=== PATIENT | female | born 1975 | race Caucasian/White ===

== ENCOUNTER 2020-10-27 12:50 | Inpatient (IN) | payer BC, OTHER ==
[~2020-10-27 12:50] MED LIST: Iopamidol-370 76% 500 ML 1 ML ONE
[2020-10-27] MEDS ORDERED: Fentanyl 100 MCG/2 ML VIAL ONE (15:43)
[2020-10-27] MEDS ORDERED: Ketorolac Tromethamine 30 MG/ML VIAL ONE (15:43)
[2020-10-27] MEDS ORDERED: Ondansetron PF 4 MG/2 ML Vial ONE (15:43)
[2020-10-27 16:01] LABS: #Monocytes 0.9 thou/uL (0.11-0.59); #Neutrophils 14.6 thou/uL (1.40-6.50); %Basophils 0.1 % (0.0-1.0); %Eosinophils 0.1 % (0.0-10.0); %Lymphocytes 11.6 % (21.0-51.0); %Monocytes 5.2 % (0.0-10.0); %Neutrophils 83.1 % (42.0-75.0); Mean Corpuscular HGB CONC 33.9 g/dL (32.0-36.0); Mean Corpuscular Hemoglobin 30.4 pg (27.0-31.0); Mean Corpuscular Volume 89.8 fL (78.0-98.0); Mean Platelet Volume 7.5 fL (7.4-10.4); Platelet Count 319 thou/uL (130-400); RBC Distribution Width 12.8 % (11.5-14.5); Red Blood Cell (RBC) Count 4.26 mill/uL (4.20-5.40); White Blood Cell (WBC) Count 17.6 thou/uL (4.8-10.8)
[2020-10-27 16:09] LABS: BHCG - Serum Negative (NEGATIVE); Pregs Control Background? CLEAR/WHITE (CLR/WHITE); Pregs Control Bar Appear? YES (CONTROL BAR)
[2020-10-27 16:20] LABS: ALT (SGPT) 19 U/L (8-55); AST (SGOT) 16 U/L (5-34); Albumin 4.2 g/dL (3.5-5.0); Alkaline Phosphatase 102 U/L (40-110); Anion Gap 15 mmol/L (10-20); BUN (Urea Nitrogen) 19 mg/dL (7.0-18.7); Bilirubin, Total 0.7 mg/dL (0.2-1.2); CK (CPK) 95 U/L (29-168); Calc. Creatinine Clearance 0 mL/min (70-130); Calcium 8.6 mg/dL (7.8-10.44); Carbon Dioxide 20 mmol/L (22-29); Chloride 109 mmol/L (98-107); Globulin 3.9 g/dL (2.4-3.5); Glucose 113 mg/dL (70-105); Lipase 7 U/L (8-78); Potassium 3.8 mmol/L (3.5-5.1); Protein, Total 8.1 g/dL (6.0-8.3); Sodium 140 mmol/L (136-145)
--- NOTE | 2020-10-27 16:55 | CT ---
CT ABDOMEN AND PELVIS WITH CONTRAST: History: Abdominal pain and constipation for four days. Technique: Multiple contiguous axial images were obtained in a CT of the abdomen and pelvis with cont rast. Sagittal and coronal reformats were performed. FINDINGS: The patient is status post cholecystectomy. The liver, kidneys, adrenal glands, spleen, and pancreas are unremarkable. There is subtle stranding change in the left colon and a small amount of fluid in the left paracolic gutter. A few scattered diverticula are seen in the colon. There is focal thickening of the wall of t he colon at the junction of the descending colon and sigmoid colon. The small bowel is normal in ruben errol. The appendix is normal. No free air is seen in the abdomen or pelvis. The reproductive organs ar e unremarkable. No abdominal or pelvic lymph adenopathy are seen. The osseous structures, visualized inferior thorax and abdominal wall soft tissues are unremarkable. IMPRESSION: There is focal colitis in the left colon. This may be secondary to diverticulitis. Infectious colitis is also a possibility. Recommend following to resolution to exclude an underlying colonic mass. POS: EAA
[2020-10-27 17:18] LABS: Bacteria/HPF None Seen HPF (None Seen); Bilirubin Negative (Negative); Blood, Urine 2+ (Negative); Clarity Clear (Clear); Glucose, Urine (Dipstick) Normal (Negative); Ketone, Urine Negative (Negative); Leukocyte Negative Leu/uL (Negative); Nitrite Negative (Negative); Protein, Urine (Dipstick) 20 mg/dL (Neg-Trace); Squamous Epithelial 0-3 HPF (0-3); Urobilinogen Normal mg/dL (Less than 2); pH, Urine 5.5 (5.0-9.0)
[2020-10-27 17:20] LABS: Specific Gravity, Urine 1.059 (1.002-1.036)
[2020-10-27] MEDS ORDERED: Morphine 4 MG/ML VIAL ONE (17:27)
[2020-10-27] MEDS ORDERED: metroNIDAZOLE 500 MG/100 ML BAG ONE (17:45)
[2020-10-27] MEDS ORDERED: Acetaminophen 325 MG TAB PO PRN (18:59)
[2020-10-27] MEDS ORDERED: Acetaminophen 650 MG Suppository PR PRN (18:59)
--- NOTE | 2020-10-27 20:07 | PDOC.HHP ---
Hospitalist HPI History of Present Illness: ADMISSION DATE: 10/27/2020 TIME OF ASSESSMENT: 190 PRIMARY CARE PHYSICIAN: Ashu Denise CHIEF COMPLAINT: Abdominal pain and vomiting HPI: This is a 45-year-old woman who presents to the emergency department with persistent abdominal pain since yesterday as well as inability to keep food down due to subsequent vomiting with any p.o. intake. The patient states that she has had GI issues in the past and suffers from chronic diarrhea for which she takes Imodium. She took 3 tablets of Imodium on Wednesday morning as she normally does when she has to drive to work and has not had a full bowel movement since. Reports that 2 days ago she was able to pass small hard pellets. Not had any abdominal distention has not had any flatus but has been burping often. The vomiting started yesterday after lunch. She reports tolerating breakfast well and without difficulties. She first began to experience lower abdominal cramping which was followed by an episode of vomiting when she attempted to eat lunch. She has had persistent vomiting only after any p.o. intake. Denies any hematemesis and denies any melena or bright red blood per rectum. Fevers, chil ls or sweats. Describes the pain as cramping that feels like contractions. She rates it a 7 out of 10 in severity. Reports having an upper and lower endoscopy 5 years ago which was obtained due to fluctuating bowel movements between diarrhea and constipation. Studies were unremarkable. ROS: Denies having any chest pain, palpitations or shortness of breath. No headaches or dizziness. No dysuria or hematuria. All other review of systems apart from what is mentioned above are negative. ED COURSE: Labs showed a white cell count of 17.6, neutrophils 83.1%, BUN 19, creatinine 0.73, GFR 87, glucose 113, LFTs normal, lipase normal. Serum pr egnancy test negative. Urinalysis was done showing clear urine which showed blood 2+, 4-6 white blood cells and 11-20 red blood cells. No bacteria present. CT of the abdomen and pelvis was done demonstrating focal colitis in the left colon felt to be possibly secondary to diverticulitis versus infectious colitis. Follow-up imaging recommended to exclude possibility of colonic mass. She was started on IV antibiotics with Levaquin and metronidazole. For her pain she received fentanyl 100 mcg followed by 30 mg of Toradol IV and 4 mg of morphine IV. For nausea and vomiting she was given 8 mg of Zofran IV. She received 2 L of normal saline IV. CURRENT MEDICATIONS: 1. Losartan 50 mg p.o. daily 2. Omeprazole 20 mg p.o. daily Allergies/Adverse Reactions: Allergy/AdvReac Type Severity Reaction Status Date / Time Penicillins Allergy Unverified 10/27/20 19:36 Sulfa (Sulfonamide Allergy Unverified 10/27/20 19:36 Antibiotics) Past History: PAST MEDICAL HISTORY: 1. Hypertension 2. Hyperlipidemia PAST SURGICAL HISTORY: 1. Tonsillectomy 2. Cholecystectomy 3. x1 SOCIAL HISTORY: Lives with her family and denies any history of tobacco use, alcohol consumption or drug use. FAMILY HISTORY: Noncontributory Hospitalist Exam Vitals: VS: Temp 98.3, HR 93, BP 149/71, RR 20, O2 sat 100% on room air. Pain currently 4 out of 10 in severity. General Appearance: NAD, awake alert Eye: PERRL, anicteric sclera ENT: normocephalic atraumatic, no oropharyngeal lesions Neck: supple, no lymphadenopathy Heart: RRR, normal peripheral pulses Respiratory: CTAB, no wheezes, no rales, no ronchi, normal chest expansion, no tachypnea Gastrointestinal: soft (obese), non-distended, no guarding, no rigidity Gastrointestinal - other findings: mild discomfort with palpation of lower abdomen Extremities: no edema Skin: normal turgor, no lesions, no rashes Neurological: cranial nerve grossly intact, normal sensation to touch, no weakness Musculoskeletal: normal tone, normal strength, no muscle wasting Psychiatric: normal affect, normal behavior, A&O x 3 Hospitalist Results Result Diagrams: 10/27/20 15:52 10/27/20 15:52 Lab results: Laboratory Last Values WBC 17.6 thou/uL (4.8-10.8) H 10/27/20 15:52 RBC 4.26 mill/uL (4.20-5.40) 10/27/20 15:52 Hgb 13.0 g/dL (12.0-16.0) 10/27/20 15:52 Hct 38.3 % (36.0-47.0) 10/27/20 15:52 MCV 89.8 fL (78.0-98.0) 10/27/20 15:52 MCH 30.4 pg (27.0-31.0) 10/27/20 15:52 MCHC 33.9 g/dL (32.0-36.0) 10/27/20 15:52 RDW 12.8 % (11.5-14.5) 10/27/20 15:52 Plt Count 319 thou/uL (130-400) 10/27/20 15:52 MPV 7.5 fL (7.4-10.4) 10/27/20 15:52 Neutrophils % 83.1 % (42.0-75.0) H 10/27/20 15:52 Lymphocytes % 11.6 % (21.0-51.0) L 10/27/20 15:52 Monocytes % 5.2 % (0.0-10.0) 10/27/20 15:52 Eosinophils % 0.1 % (0.0-10.0) 10/27/20 15:52 Basophils % 0.1 % (0.0-1.0) 10/27/20 15:52 Neutrophils # 14.6 thou/uL (1.40-6.50) H 10/27/20 15:52 Lymphocytes # 2.0 thou/uL (1.20-3.40) 10/27/20 15:52 Monocytes # 0.9 thou/uL (0.11-0.59) H 10/27/20 15:52 Eosinophils # 0.0 thou/uL (0.0-0.7) 10/27/20 15:52 Basophils # 0.0 thou/uL (0.0-0.2) 10/27/20 15:52 Sodium 140 mmol/L (136-145) 10/27/20 15:52 Potassium 3.8 mmol/L (3.5-5.1) 10/27/20 15:52 Chloride 109 mmol/L (98-107) H 10/27/20 15:52 Carbon Dioxide 20 mmol/L (22-29) L 10/27/20 15:52 Anion Gap 15 mmol/L (10-20) 10/27/20 15:52 BUN 19 mg/dL (7.0-18.7) H 10/27/20 15:52 Creatinine 0.73 mg/dL (0.6-1.1) 10/27/20 15:52 Estimated GFR (MDRD) 87 10/27/20 15:52 Glucose 113 mg/dL (70-105) H 10/27/20 15:52 Calcium 8.6 mg/dL (7.8-10.44) 10/27/20 15:52 Total Bilirubin 0.7 mg/dL (0.2-1.2) 10/27/20 15:52 AST 16 U/L (5-34) 10/27/20 15:52 ALT 19 U/L (8-55) 10/27/20 15:52 Alkaline Phosphatase 102 U/L (40-110) 10/27/20 15:52 Creatine Kinase 95 U/L (29-168) 10/27/20 15:52 Serum Total Protein 8.1 g/dL (6.0-8.3) 10/27/20 15:52 Albumin 4.2 g/dL (3.5-5.0) 10/27/20 15:52 Globulin 3.9 g/dL (2.4-3.5) H 10/27/20 15:52 Albumin/Globulin Ratio 1.1 g/dL (1.2-2.2) L 10/27/20 15:52 Lipase 7 U/L (8-78) L 10/27/20 15:52 Serum , Qual Negative (NEGATIVE) 10/27/20 15:52 Urine Color Yellow (Yellow) 10/27/20 16:50 Urine Clarity Clear (Clear) 10/27/20 16:50 Urine pH 5.5 (5.0-9.0) 10/27/20 16:50 Ur Specific [place] 1.059 (1.002-1.036) H 10/27/20 16:50 Urine Protein 20 mg/dL (Neg-Trace) 10/27/20 16:50 Urine Glucose (UA) Normal mg/dL (Negative) 10/27/20 16:50 Urine Ketones Negative mg/dL (Negative) 10/27/20 16:50 Urine Blood 2+ (Negative) A 10/27/20 16:50 Urine Nitrite Negative (Negative) 10/27/20 16:50 Urine Bilirubin Negative (Negative) 10/27/20 16:50 Urine Urobilinogen Normal mg/dL (Less than 2) 10/27/20 16:50 Ur Leukocyte Esterase Negative Saray/uL (Negative) 10/27/20 16:50 Urine RBC 11-20 HPF (0-3) A 10/27/20 16:50 Urine WBC 4-6 HPF (0-3) A 10/27/20 16:50 Ur Squamous Epith Cells 0-3 HPF (0-3) 10/27/20 16:50 Urine Bacteria None Seen HPF (None Seen) 10/27/20 16:50 CT scan - Ab/Pelvis Status: report reviewed by me Hospitalist H&P A/P (1) Abdominal pain Code(s): R10.9 - UNSPECIFIED ABDOMINAL PAIN Status: Acute (2) Vomiting Code(s): R11.10 - VOMITING, UNSPECIFIED Status: Acute (3) Colitis Code(s): K52.9 - NONINFECTIVE GASTROENTERITIS AND COLITIS, UNSPECIFIED Status: Acute (4) Hypertension Code(s): I10 - ESSENTIAL (PRIMARY) HYPERTENSION Status: Chronic (5) Obesity Code(s): E66.9 - OBESITY, UNSPECIFIED Status: Chronic Plan: Started on IV antibiotics GI Consult Continue morphine for pain Will give Bentyl IM for abdominal cramping Keep patient NPO Continue IV fluids Monitor BP Resume home meds once verified, as appropriate GI Prophylaxis with Famotidine DVT Prophylaxis with mechanical SCDs CODE STATUS FULL Case discussed with attending who agrees with plan as above.
[2020-10-27] MEDS: Morphine 2 MG/ML VIAL SLOW IVP PRN (21:55)
[2020-10-27] MEDS: Famotidine/PF 20 mg/2ml Vial SLOW IVP SCH (21:56)
--- NOTE | 2020-10-27 22:31 | RAD ---
2 VIEWS CHEST: Date: 10/27/2020 COMPARISON: None. HISTORY: Baseline chest x-ray. Abdominal pain. Diverticulitis. FINDINGS: Two views of the chest show normal sized cardiomediastinal silhouette. There is no evidence of consol idation, mass, or pleural effusion. The bones are unremarkable. IMPRESSION: No evidence of acute cardiopulmonary disease. POS: EAA
[2020-10-28] MEDS: metroNIDAZOLE 500 MG in Premix Bag 1 BAG IVPB SCH ×3 (01:10→22:02)
[2020-10-28] MEDS ORDERED: Morphine 2 MG/ML VIAL ONE ×2 (02:48→09:36)
[2020-10-28] MEDS ORDERED: Dicyclomine 10 MG CAP ONE (02:49)
[2020-10-28] MEDS ORDERED: Famotidine/PF 20 mg/2ml Vial ONE (09:34)
[2020-10-28] MEDS ORDERED: Acetaminophen 325 MG TAB ONE (09:36)
[2020-10-28] MEDS ORDERED: metroNIDAZOLE 500 MG/100 ML BAG ONE (09:36)
[2020-10-28] MEDS: Morphine 2 MG/ML VIAL SLOW IVP PRN ×3 (09:45→22:04)
[2020-10-28] MEDS: Famotidine/PF 20 mg/2ml Vial SLOW IVP SCH ×2 (09:45→22:03)
--- NOTE | 2020-10-28 10:56 | PDOC.HOSPP ---
- Subjective Encounter Date: 10/28/20 Encounter Time: 10:52 Subjective: No overnight events. Patient reports her abdominal pain feels the same as yesterday. Continues to endorse nausea/vomiting. Is passing gas this am. Denies chest pain, SOB. Chart and medications reviewed. - Objective Vital Signs & Weight: Vital Signs (12 hours) Temp Pulse Resp Pulse Ox 10/27/20 22:59 97.5 F L 91 18 95 Result Diagrams: 10/27/20 15:52 10/27/20 15:52 Hospitalist ROS - Review of Systems Constitutional: denies: fever, chills, sweats, weakness, malaise, other Eyes: denies: pain, vision change, conjunctivae inflammation, eyelid inf lammation, redness, other ENT: denies: ear pain, ear discharge, nose pain, nose discharge, nose congestion, mouth pain, mouth swelling, throat pain, throat swelling, other Respiratory: denies: cough, dry, shortness of breath, hemoptysis, SOB with exc ertion, pleuritic pain, sputum, wheezing, other Cardiovascular: denies: chest pain, palpitations, orthopnea, paroxysmal noc. dyspnea, edema, light headedness, other Gastrointestinal: reports: nausea, vomiting, abdominal pain. denies: diarrhea, constipation, melena, hematochezia, other Genitourinary: denies: dysuria, frequency, incontinence, hematuria, retention, other Musculoskeletal: denies: neck pain, shoulder pain, arm pain, back pain, hand pain, leg pain, foot pain, other Skin: denies: rash, lesions, brodie, bruising, other Neurological: denies: weakness, numbness, incoordination, change in speech, confusion, seizures, other - Medication Medications: Active Medications Generic Name Dose Route Start Last Admin Trade Name Freq PRN Reason Stop Dose Admin Famotidine 20 mg 10/27/20 21:00 10/27/20 21:56 Famotidine/Pf 20 Mg/2ml Vial SLOW IVP 20 mg Q12HR CORNELIUS Administration Metronidazole 500 mg/ Device 100 mls @ 100 mls/hr 10/28/20 01:00 10/28/20 01:10 IVPB 100 mls [id number],1700 CORNELIUS Administration Morphine Sulfate 2 mg 10/27/20 19:03 10/27/20 21:55 Morphine 2 Mg/Ml Vial SLOW IVP 2 mg Q4H PRN Administration Severe Pain (7-10) Hospitalist Exam Vitals: Vital Signs (12 hours) Temp Pulse Resp Pulse Ox 10/27/20 22:59 97.5 F L 91 18 95 General Appearance: NAD, awake alert Eye: PERRL, anicteric sclera ENT: normocephalic atraumatic, no oropharyngeal lesions, moist mucosa Neck: supple, symmetric, no JVD, no thyromegaly, no lymphadenopathy, no carotid bruit Heart: RRR, no murmur, no gallops, no rubs, normal peripheral pulses Respiratory: CTAB, no wheezes, no rales, no ronchi, normal chest expansion, no tachypnea, normal percussion Gastrointestinal: soft, non-distended, normal bowel sounds, no palpable masses, no hepatomegaly, no splenomegaly, no bruit, tender to palpation Extremities: no cyanosis, no clubbing, no edema Skin: normal turgor, no lesions, no rashes Neurological: cranial nerve grossly intact, normal sensation to touch, no weakness, no focal deficits, no new deficit Musculoskeletal: normal tone, normal strength, no muscle wasting Psychiatric: normal affect, normal behavior, A&O x 3 Hosp A/P - Plan Diverticulitis 45F with abdominal pain, N/V found to have CT evidence of diverticulitis vs infectious colitis. WBC 17.6. LFTs wnl. Pt reports constipation over the past few days. No transition point identified on CT scan. Is passing gas. Hx of what sounds like IBS constipation-diarrhea type with negative prior GI workup. Started on IV levaquin and flagyl. GI consult, recommendations appreciated. Plan -Continue IV levaquin, flagyl -IVF, prn zofran -Serial abdominal exams -Bentyl PRN -Clear liquid diet, ADAT -GI consult, recs appreciated Hypertension Hx of HTN, will continue home HCTZ DVT prophylaxis- Lovenox FULL CODE Case discussed with attending physician, Dr. Benz.
[2020-10-28] MEDS: Lactated Ringer's 1,000 ML IV SCH ×2 (13:00→22:07)
--- NOTE | 2020-10-28 14:05 | CON ---
DATE OF CONSULTATION: REASON FOR CONSULT: Abdominal pain, focal colitis, possible mass on CAT scan. HISTORY OF PRESENT ILLNESS: Ms. Hernandez is a pleasant 45-year-old female, who states she became acutely ill on Wednesday, the day prior to admission which was yesterday. She developed left lower quadrant pain and obstipation. She thought maybe she was constipated and tried to take some laxatives, this did not make things better, as the pain worsened, she ultimately came to the emergency room here she had a CAT scan that showed inflammatory change in the left lower quadrant. She was afebrile. The CAT scan showed a "focal colitis" in the left colon which the radiologist felt was possibly secondary to diverticulitis or possibly even an infectious colitis. In talking with the patient, she has had no diarrhea or pain before this. She has no sick contacts. She denies prior history of diverticulitis. She did have a colonoscopy and EGD at [facility] 4 years ago for workup of her chronic diarrhea after cholecystectomy and she was told it was post cholecystectomy diarrhea. PAST MEDICAL HISTORY: Hypertension. She denies diabetes. Hyperlipidemia. PAST SURGICAL HISTORY: Cholecystectomy, , and tonsillectomy. ALLERGIES: PENICILLIN, SULFA. MEDICATIONS AT HOME: 1. Losartan. 2. Omeprazole. REVIEW OF SYSTEMS: She does have some reflux at times at home, but has no dysphagia or odynophagia. PRESENT MEDICATIONS: Here; 1. Tylenol. 2. Dicyclomine. 3. Pepcid. 4. Lactated Ringer's. 5. Levofloxacin q.24 hours. 6. Flagyl 500 IV q.8 hours. 7. P.r.n. morphine . PHYSICAL EXAMINATION: GENERAL: She is resting comfortably in bed. She is a little bit overweight. She is in no distress. VITAL SIGNS: Temperature is 97, pulse 91, blood pressure not recorded. She was not hypotensive in the ER. The nurse reports that her vitals have been stable to me. They were not written down because of computer malfunctions with the weather. HEENT: In general, oropharynx with no lesions. She is not icteric. LUNGS: Clear. HEART: Regular without clicks or murmurs. ABDOMEN: Soft and nontender except for mild tenderness in the left lower quadrant. No rebound or guarding. LABORATORY DATA: White count 17, hemoglobin 13, platelet count 319. Urinalysis, 2+ blood, red blood cells and white blood cells. Microbiology, not sent. ASSESSMENT: This lady likely has diverticulitis. She has no symptoms of a colitis either ischemic or infectious. The pain was with obstipation. She has had a colonoscopy 4 years ago at [facility], so a cancer is very unlikely. RECOMMENDATIONS: Agree with low residue, clear liquid diet. I will give her some IV fluids as she is probably dehydrated, she has been ill, and I will continue the IV Flagyl and Levaquin. Hopefully, she will be ready go home in 24 to 48 hours and can follow up with her primary mortgage underwriter and primary physician at [facility]. Job ID: [id number]
[2020-10-28 16:30] LABS: Anion Gap 11 mmol/L (10-20); BUN (Urea Nitrogen) 20 mg/dL (7.0-18.7); Calc. Creatinine Clearance 0 mL/min (70-130); Calcium 7.9 mg/dL (7.8-10.44); Carbon Dioxide 20 mmol/L (22-29); Chloride 110 mmol/L (98-107); Glucose 100 mg/dL (70-105); Potassium 3.6 mmol/L (3.5-5.1); Sodium 137 mmol/L (136-145)
[2020-10-29] MEDS: metroNIDAZOLE 500 MG in Premix Bag 1 BAG IVPB SCH ×2 (04:04→11:58)
[2020-10-29] MEDS ORDERED: Promethazine HCl 12.5 MG in Sodium Chloride 0.9% 50 ML IVPB SCH (04:15)
[2020-10-29] MEDS: Famotidine/PF 20 mg/2ml Vial SLOW IVP SCH ×2 (08:14→21:16)
[2020-10-29] MEDS: Lactated Ringer's 1,000 ML IV SCH (08:17)
[2020-10-29 12:21] LABS: Hemoglobin 12.3 g/dL (12.0-16.0); Mean Corpuscular Hemoglobin 30.8 pg (27.0-31.0); Mean Corpuscular Volume 90.7 fL (78.0-98.0); Mean Platelet Volume 9.2 fL (7.4-10.4); Platelet Count 185 thou/uL (130-400); RBC Distribution Width 12.4 % (11.5-14.5); Red Blood Cell (RBC) Count 3.99 mill/uL (4.20-5.40); White Blood Cell (WBC) Count 12.2 thou/uL (4.8-10.8)
--- NOTE | 2020-10-29 15:49 | PRG ---
DATE OF SERVICE: 10/29/2020 REASON FOR CONSULTATION: Acute diverticulitis. SUBJECTIVE: Since being placed on antibiotic therapy, she states that her abdominal pain has significantly improved when compared to yesterday. She does continue to have some left lower quadrant/suprapubic abdominal pain, but again much improved. She did have a large semi-solid/liquid bowel movement last night as well with no evidence of hematochezia or melena. Today, she has not had any further bowel movements as of yet, but has not started eating a solid diet . Otherwise, she denies any nausea, vomiting, fevers, chills, hematemesis, melena, or hematochezia. OBJECTIVE: VITAL SIGNS: Temperature 98.4, pulse 85, blood pressure 143/84, respiratory rate 16, saturating 95% on room air. GENERAL: The patient was lying in bed, in no acute distress. Alert and oriented x4. CARDIOVASCULAR: Regular rate and rhythm. RESPIRATORY: Clear to auscultation bilaterally. ABDOMEN: Normoactive bowel sounds. Soft, nondistended. Tenderness to palpation in the left lower quadrant, suprapubic and right lower quadrant. EXTREMITIES: No cyanosis, clubbing, or edema. LABORATORY DATA: CBC with a white blood cell count of 12.2, hemoglobin 12.3, hematocrit 36.1, platelets 185. IMAGING DATA: No current GI imaging is available for review. ASSESSMENT AND PLAN: The patient is a 45-year-old female with past medical history of hypertension and hyperlipidemia, presenting with acute diverticulitis. Acute uncomplicated diverticulitis. The patient initially presented with increased left lower quadrant abdominal pain and obstipation, for which attempts to take laxatives did not alleviate her pain. On evaluation in the ER, she was noted to have an elevated white blood cell count as well as inflammatory change in left lower quadrant on CT, consistent with focal colitis. At this time, this is most likely secondary to diverticulitis in light of a history of constipation and currently responding to current antibiotic regimen. RECOMMENDATIONS: 1. We will continue the patient on the current antibiotic regimen including levofloxacin and metronidazole. 2. Advance the patient's diet as tolerated, but would advance to a low-fiber diet ultimately. 3. Pain control per Primary Team. 4. Antiemetics per Primary Team. The patient is currently responding to antibiotic administration. If doing better right tomorrow, she could be potentially discharged to home on oral antibiotics and follow up in the GI Clinic. We will continue to follow peripherally at this time. Please call with any questions. Job ID: [id number]
--- NOTE | 2020-10-29 15:54 | PDOC.HOSPP ---
- Subjective Encounter Date: 10/29/20 Encounter Time: 12:00 Subjective: F/u: diverticulitis The patient is tolerating a clear liquid diet . Her pain has improved, no nausea and vomiting. She still has some diarrhea, but reports chronic diarrhea for years after a cholecystectomy that is worsened with eating salads and greasy foods - Objective Vital Signs & Weight: Vital Signs (12 hours) Temp Pulse Resp BP Pulse Ox 10/29/20 11:14 98.4 F 85 16 143/84 H 95 10/29/20 11:00 98.4 F 85 17 143/84 H 95 10/29/20 07:55 98.1 F 64 16 124/78 98 10/29/20 04:49 97.6 F 73 18 134/70 97 Result Diagrams: 10/29/20 11:57 10/28/20 05:32 Hospitalist ROS - Review of Systems Constitutional: denies: fever, chills - Medication Medications: Active Medications Generic Name Dose Route Start Last Admin Trade Name Freq PRN Reason Stop Dose Admin Acetaminophen 650 mg 10/27/20 18:59 10/28/20 12:05 Acetaminophen 325 Mg Tab PO 650 mg Q4H PRN Administration Headache/Fever/Mild Pain (1-3) Famotidine 20 mg 10/27/20 21:00 10/29/20 08:14 Famotidine/Pf 20 Mg/2ml Vial SLOW IVP 20 mg Q12HR CORNELIUS Administration Levofloxacin 750 mg/ Device 150 mls @ 100 mls/hr 10/28/20 18:00 10/28/20 18:58 IVPB 150 mls 1800 CORNELIUS Administration Metronidazole 500 mg/ Device 100 mls @ 100 mls/hr 10/28/20 20:00 10/29/20 11:58 IVPB 100 mls 0400,1200,2000 CORNELIUS Administration Morphine Sulfate 2 mg 10/27/20 19:03 10/28/20 22:04 Morphine 2 Mg/Ml Vial SLOW IVP 2 mg Q4H PRN Administration Severe Pain (7-10) Hospitalist Exam Vitals: Vital Signs (12 hours) Temp Pulse Resp BP Pulse Ox 10/29/20 11:14 98.4 F 85 16 143/84 H 95 10/29/20 11:00 98.4 F 85 17 143/84 H 95 10/29/20 07:55 98.1 F 64 16 124/78 98 10/29/20 04:49 97.6 F 73 18 134/70 97 General Appearance: NAD, awake alert Eye: PERRL, anicteric sclera ENT: normocephalic atraumatic, no oropharyngeal lesions Neck: no JVD Heart: RRR, no murmur, no gallops, no rubs Respiratory: CTAB, no wheezes, no rales, no ronchi Gastrointestinal: soft, non-tender, non-distended, normal bowel sounds, no splenomegaly Extremities: no cyanosis, no clubbing, no edema Skin: normal turgor, no lesions, no rashes Hosp A/P - Plan CT abdomen: focal colitis in the left colon This is a 45F with abdominal pain, N/V found to have CT evidence of diverticulitis vs infectious colitis. WBC 17.6. LFTs wnl. Pt reports constipation over the past few days. No transition point identified on CT scan. Is passing gas. Hx of what sounds like IBS constipation-diarrhea type with negative prior GI workup. Started on IV levaquin and flagyl. GI consult, recommendations appreciated. #Diverticultis vs colitis #Chronic diarrhea -WBC has improved to 11. CT abdomen showed colitis vs diverticulitis. Clinically she is improving. Will transition to oral levaquin and flagyl - will check stool cultures, ova and parasite and C diff to rule out infectious etiologies - advance diet to full liquid and if tolerates, can advance further Hypertension - will discontinue IV fluids
[2020-10-29] MEDS: metroNIDAZOLE 500 MG TAB PO SCH (21:15)
[2020-10-30 07:12] LABS: Hemoglobin 12.9 g/dL (12.0-16.0); Mean Corpuscular HGB CONC 33.9 g/dL (32.0-36.0); Mean Corpuscular Hemoglobin 30.5 pg (27.0-31.0); Mean Corpuscular Volume 89.9 fL (78.0-98.0); Platelet Count 270 thou/uL (130-400); RBC Distribution Width 12.4 % (11.5-14.5); Red Blood Cell (RBC) Count 4.23 mill/uL (4.20-5.40); White Blood Cell (WBC) Count 10.6 thou/uL (4.8-10.8)
[2020-10-30] MEDS: metroNIDAZOLE 500 MG TAB PO SCH (07:54)
[2020-10-30] MEDS: Famotidine/PF 20 mg/2ml Vial SLOW IVP SCH (07:54)
--- NOTE | 2020-10-30 11:02 | PDOC.DS.DS ---
Provider Date of Admission: 10/27/20 17:31 Date of Discharge: 10/30/20 Admitting Provider: Juarez Benz MD Primary Care Physician: DAMIEN HIDALGO Course Hospital Course: Discharge Diagnoses: 1. Colitis versus diverticulitis Brief HPI: This is a 45F with abdominal pain, nausea, vomiting and worsening of her chronic diarrhea for a few days. CT showed colitis versus diverticulitis. She was admitted for further workup. . Hospital Course: the patient received IV levaquin and flagyl while in the hospital. Stool studies were negative for C diff, campylobacter, E coli, giardia, cryptosporidium. She had improvement in her abdominal pain and her anup rrhea. She was switched to oral antibiotics on 10/29 and tolerated that well. Her WBC resolved to 10. She tolerated a regular diet at the time of discharge with no nausea or vomiting. She will be discharged with four more days of levaquin and flagyl and will f/u with her PCP in a week. Pertinent Studies: CT abdomen: focal colitis in the left colon vs diverticulitis Resuscitation Status: 10/27/20 18:59 Resuscitation Status Routine Co-Sign Provider: Resuscitation Status: FULL: Full Resuscitation Lab Results: 10/30/20 06:19 10/28/20 05:32 Abnormal Lab Results - Last 48 hrs 10/28/20 05:32: Chloride 110 H, Carbon Dioxide 20 L, BUN 20 H 10/29/20 11:57: WBC 12.2 H, RBC 3.99 L Microbiology - Entire Visit 10/29/20 22:35 Stool C. difficile GDH Antigen & Toxins - Final 10/29/20 22:35 Stool - Liquid Rapid Parasite Screen - Final 10/29/20 22:35 Stool - Liquid Campylobacter Antigen Assay - Final 10/29/20 22:35 Stool - Liquid Shiga Toxin Test - Final Vitals: Vital Signs (12 hours) Temp Pulse Resp BP Pulse Ox 10/30/20 08:00 97.9 F 78 18 121/77 94 L Physical Exam: The patient was seen and examined on the day of discharge. General Appearance: NAD, awake alert Eye: PERRL, anicteric sclera ENT: normocephalic atraumatic, no oropharyngeal lesions Neck: supple, no JVD Respiratory: CTAB, no wheezes, no rales, no ronchi Cardiovascular: RRR, no murmur, no gallops, no rubs Gastrointestinal: soft, non-tender, non-distended, normal bowel sounds Extremities: no cyanosis, no clubbing, no edema Problem Time Spent in discharge related activities (mins): 30 Plan Prescriptions: Levofloxacin [Levaquin] 750 mg PO Q24HR #4 tab metroNIDAZOLE [Flagyl] 500 mg PO TID #15 tab Home Medications: Medication Instructions Recorded Confirmed Type Colestipol HCl 1 tab PO BID 10/27/20 10/27/20 History Levofloxacin [Levaquin] 750 mg PO Q24HR #4 tab 10/30/20 Rx metroNIDAZOLE [Flagyl] 500 mg PO TID #15 tab 10/30/20 Rx Allergies: Penicillins Allergy (Unverified 10/27/20 19:36) Sulfa (Sulfonamide Antibiotics) Allergy (Unverified 10/27/20 19:36) Activity:: Activity as Tolerated Nourishment:: Regular Diet Referrals: ELIAS WHITLEY & [Primary Care Provider] - Disposition: HOME Quality CORE MEASURES:: N/A
[2020-10-30 11:34] VITALS: BP 142/81; TEMP 98.5
== END 2020-10-30 12:40 | disposition home or self-care (01) | DRG 392 ==
LOC: ERS 12:50 → T4-A 17:31
PROVIDERS: ADMIT Internal Medicine; ATTEND Internal Medicine
DX: K57.32 Diverticulitis of large intestine without perforation or abscess without bleeding (principal); Z20.822 Contact with and (suspected) exposure to COVID-19; K52.9 Noninfective gastroenteritis and colitis, unspecified; E78.5 Hyperlipidemia, unspecified; I10 Essential (primary) hypertension; E66.9 Obesity, unspecified; Z90.49 Acquired absence of other specified parts of digestive tract; Z88.2 Allergy status to sulfonamides; Z88.0 Allergy status to penicillin; Z79.899 Other long term (current) drug therapy
CPT/HCPCS: 36415; 71046; 74177; 80048; 80053; 81003; 81015; 82550; 83690; 84703; 85025; 85027; 87045; 87046; 87081; 87324; 87328; 87329; 87427; 87449; 96365; 96368; 96375; J1885; J1956; J2270; J2405; J2550; J3010; Q9967; S0028